=== PATIENT | female | born 1990 | race Hispanic/Latino ===

== ENCOUNTER 2022-06-19 14:54 | Emergency (ER) | payer BC ==
[~2022-06-19] VITALS: Ht 162.6 cm; Wt 98.4 kg
[2022-06-19 14:57] VITALS: BP 147/87
[2022-06-19] MEDS ORDERED: TETANUS/DIPHTHERIA TOXOID [ADULT] 0.5 ML VIAL IM ONE (15:30)
== END 2022-06-19 15:49 | disposition home or self-care (01) ==
LOC: EDH 14:54
DX: S61.211A Laceration without foreign body of left index finger without damage to nail, initial encounter (principal); Z98.890 Other specified postprocedural states; W26.8XXA Contact with other sharp object(s), not elsewhere classified, initial encounter; Y93.89 Activity, other specified; Y92.89 Other specified places as the place of occurrence of the external cause; Y99.8 Other external cause status
CPT/HCPCS: 12001; 90471; 90714